=== PATIENT | male | born 1970 | race Caucasian/White ===

== ENCOUNTER 2017-09-29 19:16 | Emergency (ER) | payer OTHER ==
--- NOTE | 2017-09-29 19:58 | RAD ---
RIGHT ANKLE THREE VIEWS: History: Injury. Comparison: None. FINDINGS: There is medial and lateral malleolar edema. There is a small ossification of the deltoid ligament, s uggestive of prior injury. No displaced fracture or malalignment is appreciated. 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 Small plantar and dorsal calcaneal spurs. IMPRESSION: Evidence of ankle sprain. No acute fracture or malalignment. POS: [facility]IO
== END 2017-09-29 20:04 | disposition home or self-care (01) ==
LOC: ERS 19:16
DX: S93.401A Sprain of unspecified ligament of right ankle, initial encounter (principal); E11.9 Type 2 diabetes mellitus without complications; X50.9XXA Other and unspecified overexertion or strenuous movements or postures, initial encounter

== ENCOUNTER 2021-12-31 10:02 | Outpatient (CLI) | payer BC | END 2021-12-31 10:03 | disposition home or self-care (01) | LOC: RAD 10:02 | PROVIDERS: ATTEND Family Medicine | DX: M54.42 Lumbago with sciatica, left side (principal); M47.816 Spondylosis without myelopathy or radiculopathy, lumbar region | CPT/HCPCS: 72100 ==

== ENCOUNTER 2022-11-24 13:21 | Outpatient (CLI) | payer BC | END 2022-11-24 13:22 | disposition home or self-care (01) | LOC: BICRAD 13:21 | PROVIDERS: ATTEND Nurse Practitioner Family | DX: M25.511 Pain in right shoulder (principal); G89.29 Other chronic pain ==

== ENCOUNTER 2024-01-24 11:54 | Outpatient (CLI) | payer BC | END 2024-01-24 11:55 | disposition home or self-care (01) | LOC: BICRAD 11:54 | PROVIDERS: ATTEND Family Medicine | DX: M47.26 Other spondylosis with radiculopathy, lumbar region (principal) | CPT/HCPCS: 72100 ==